=== PATIENT | female | born 1965 | race Hispanic/Latino ===

== ENCOUNTER 2023-09-09 12:19 | Emergency (ER) | payer BC ==
[~2023-09-09] VITALS: Ht 160 cm; Wt 71.3 kg
[2023-09-09 12:26] VITALS: TEMP 98.1
[2023-09-09] MEDS ORDERED: METOPROLOL SUCC25 MG PO (14:34)
[2023-09-09] MEDS ORDERED: HYDROXYZINE HCL25 MG PO (14:34)
[2023-09-09] MEDS ORDERED: METHOTREXATE2.5 MG PO (14:34)
[2023-09-09] MEDS ORDERED: HYZAAR 50-12.51 EACH (14:34)
[2023-09-09] MEDS ORDERED: SIMVASTATIN20 MG PO (14:34)
[2023-09-09] MEDS ORDERED: FOLIC ACID0.4 MG PO (14:34)
[2023-09-09] MEDS ORDERED: XELJANZ XR11 MG (14:34)
[2023-09-09 15:01] VITALS: PULSE 56; RESP 19; O2SAT 96
== END 2023-09-09 15:05 | disposition home or self-care (01) ==
LOC: FSED 12:24
DX: R07.89 Other chest pain (principal); I10 Essential (primary) hypertension; E78.5 Hyperlipidemia, unspecified; M06.9 Rheumatoid arthritis, unspecified; F41.9 Anxiety disorder, unspecified; R94.31 Abnormal electrocardiogram [ECG] [EKG]
CPT/HCPCS: 71046; 80053; 81003; 82553; 84484; 85025; 93005; 99284